=== PATIENT | female | born 1950 | race Caucasian/White ===

== ENCOUNTER 2022-07-28 09:53 | Inpatient (IN) | payer MEDICARE, SELFPAY ==
--- NOTE | ~2022-07-28 | CT_ITS ---
EXAMINATION: CT ABDOMEN AND PELVIS WITHOUT CONTRAST CLINICAL INFORMATION: Diffuse abdominal pain and diarrhea COMPARISON: PVR exam 12/02/2016 TECHNIQUE: Multidetector volumetric imaging was performed from the superior aspect of the liver through the pubic symphysis. Sagittal and coronal reformatted images were obtained on the technologist's workstation. This CT examination was performed using dose optimization techniques as appropriate, variously including the following: *Automated exposure control *Adjustment of mA and/or kV according to patient size (this includes techniques or standardized protocols for targeted exams where dose is matched to indication/reason for exam; i.e. extremities or head) *Use of iterative reconstruction technique DLP: 956 mGy-cm FINDINGS: LUNG BASES: Extensive coronary calcifications seen in the left anterior descending artery and the circumflex artery. Heart size normal. No infiltrates, effusions or lung masses are seen. LIVER, GALLBLADDER, AND BILIARY TREE: The liver is enlarged measuring 19.8 cm in greatest length with normal attenuation. No focal hepatic lesion or biliary ductal dilatation is present. The gallbladder contains large rim calcified calculi with some possible mural calcification. There are no obvious pericholecystic inflammatory changes. PANCREAS: Unremarkable. SPLEEN: Splenomegaly with the spleen measuring 14.4 cm in greatest cephalocaudad dimension. ADRENAL GLANDS: Unremarkable. KIDNEYS AND URETERS: The kidneys are normal in size, shape, and attenuation. No hydronephrosis, hydroureter, or calculi seen. No perinephric stranding. BLADDER: Unremarkable. GASTROINTESTINAL TRACT: The small and large bowel are unremarkable. Large amount of bowel is present in the hernia sac described below. The appendix is unremarkable. ABDOMINAL WALL: There is a large periumbilical hernia seen containing unobstructed colon and small bowel. LYMPH NODES: No retroperitoneal lymphadenopathy. VASCULAR: Severe infrarenal aorta iliac atherosclerotic changes are seen with probable right iliac stenosis. At the time of the prior PVR study the ankle-brachial index on the right was 0.38. Heavy calcific plaque present at the origin of the SMA with stenosis. At one point, calcified plaque appears to fill nearly the entire lumen again (4:247). No significant calcific plaque seen at the origin of the NAKITA. PELVIC VISCERA: Surgically absent OSSEOUS STRUCTURES: Severe degenerative changes seen throughout the spine. CT/CT abdomen pelvis wo IV con IMPRESSION: 1. Hepatosplenomegaly. 2. Cholelithiasis without cholecystitis. 3. Large periumbilical hernia containing unobstructed colon and small bowel. 4. 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 5. Other incidental findings as described above. Fleischner guidelines were followed.
[2022-07-28 10:00] VITALS: BP 122/97; BP 141/79; PULSE 78; RESP 18; TEMP 36.4; O2SAT 97; BMI 45.6
--- NOTE | 2022-07-28 10:02 | ED_ITS ---
HPI - Abdominal Pain General Chief Complaint: General Medical Stated Complaint: Abd pain, diarrhea/nausea per EMS Time Seen by Provider: 07/28/22 10:00 Source: patient Mode of arrival: EMS Limitations: no limitations History of Present Illness HPI narrative: 2 weeks of abdominal pain and diarrhea described as watery MD elicited complaint: abdominal pain Pertinent past history: diverticulitis and other (large ventral hernia) Onset (ago): week(s) Pain Consistency: constant Location: diffuse Quality: aching Associated symptoms: nausea, vomiting and diarrhea Related Data Home Medications Medication Instructions Recorded Confirmed apixaban 5 mg tablet (Eliquis) 5 mg PO BID 09/02/21 09/30/21 acetaminophen 325 mg tablet 325 mg PO DAILY PRN 09/07/21 09/30/21 (Tylenol) atorvastatin 40 mg tablet 40 mg PO BEDTIME 09/07/21 09/30/21 propranolol 20 mg tablet 20 mg PO BID 09/07/21 09/30/21 furosemide 20 mg tablet 20 mg PO DAILY 09/30/21 09/30/21 levetiracetam 750 mg tablet 750 mg PO DAILY 09/30/21 09/30/21 Previous Rx's Medication Instructions Recorded lidocaine 4 % topical patch 2 patch topical DAILY PRN pain #30 09/02/21 (Aspercreme (lidocaine)) ea losartan 25 mg tablet 25 mg PO DAILY #90 tabs 09/16/21 ropinirole 0.25 mg tablet 0.25 mg PO BEDTIME #90 tabs 09/21/21 blood sugar diagnostic (FreeStyle #100 ea 09/30/21 Lite Strips) blood-glucose meter (FreeStyle #1 ea 09/30/21 [place] Lite kit) lancets 28 gauge (FreeStyle #100 ea 09/30/21 Lancets) mupirocin calcium 2 % topical cream 1 appl topical BID #30 grams 09/30/21 nystatin 100,000 unit/gram topical 1 appl topical TID PRN fungal rash 09/30/21 powder (Nystop) #60 grams doxycycline monohydrate 100 mg 100 mg PO BID 7 days #14 caps 11/25/21 capsule ondansetron 4 mg disintegrating 4 mg PO Q8H PRN nausea and 12/23/21 tablet vomiting 15 days #45 tabs methimazole 5 mg tablet 5 mg PO DAILY 90 days #90 tabs 04/20/22 omeprazole 20 mg capsule,delayed 20 mg PO DAILY 90 days #90 caps 05/14/22 release Allergies Allergy/AdvReac Type Severity Reaction Status Date / Time aloe vera [ALOE VERA] Allergy Intermediate RASH Verified 09/30/21 15:55 erythromycin base Allergy Intermediate RASH Verified 09/30/21 15:55 [ERYTHROMYCIN BASE] azithromycin Allergy Unknown Rash Verified 09/30/21 15:55 simvastatin AdvReac Unknown palpitations, Verified 09/30/21 15:55 chest pains Review of Systems Review of Systems Yes all other systems are reviewed and are negative Gastrointestinal: Reports abdominal pain and Reports diarrhea PMFSH Past Medical History Medical History Congestive heart failure (CHF) COPD (chronic obstructive pulmonary disease) Diabetes mellitus Epilepsy Osteoarthritis Surgical History History of hysterectomy Social History Social History Housing: Apartment Alcohol intake: never Patient Tobacco Use Status: Former Tobacco user Tobacco use type: Cigarette Smoked in Last 30 Days: No e-Cigarette/Vaping Use: Never Used Advance Directives: No Current occupational status: disabled Cognitive needs: No Hearing needs: No Vision needs: No Physical Exam ED Vital Signs: Vital Signs - 24 hr 07/28/22 10:00 Temperature 97.5 F Pulse Rate 78 Respiratory Rate 18 Blood Pressure 141/79 H Pulse Oximetry 97 Oxygen Delivery Method Room Air BMI result Body Mass Index 45.6 Const Other: obese, unkept Orientation/consciousness: oriented to person and patient oriented x3 Limitations: no limitations HENMT Head: Yes normal to inspection Ears: external ears normal General nose exam: Normal external nose present Mouth: Normal oral and palatal mucosa present and oropharynx normal Throat: Yes posterior oropharynx normal Eyes General: appearance normal, both eyes and all related structures Neck Neck: Yes normal visual inspection Chest Chest palpation & inspection: normal inspection of the chest Resp Auscultation: clear to auscultation bilaterally Cardio Jugular venous distension: no JVD Rate: regular rate Rhythm: regular rhythm Heart sounds: S1 normal heart sound present and S2 normal heart sound present GI Other: large ventral hernia easily reduced, diffuse tenderness to abdomen Palpation (GI): Tenderness to palpation present (GI) Auscultation: normal bowel sounds General: Yes no CVA tenderness Back/Spine/Pelvis Back: no CVA tenderness Skin General skin exam: no rashes or lesions noted Neuro General: oriented to person and patient oriented x3 Cranial nerves: Yes CN's II-XII intact bilaterally Motor exam (neuro): 5/5 motor strength present throughout Extrem General: Yes normal to inspection Psych Appearance: grossly normal Medical Decision Making Differential Diagnosis bowel obstruction, cdifficile, diverticulitis, colitis Admission/Observation 71 debilitated female with abdominal pain and diarrhea admission is begin considered Consult Healthcare Provider Management of the patient was discussed with: Hospitalist Lab Data 07/28/22 10:58 07/28/22 10:58 Labs: Lab Results 07/28/22 07/28/22 07/28/22 Range/Units 10:58 10:58 10:59 WBC 10.1 (4.8-10.8) X10*3/uL RBC 4.37 (4.20-5.50) X10*6/uL Hgb 11.7 L (12.0-16.0) g/dl Hct 35.8 L (37.0-47.0) % MCV 81.9 (80.0-98.0) fL MCH 26.8 L (27.0-33.0) pg MCHC 32.7 (31.0-35.0) g/dl RDW 14.2 (11.0-16.0) % Plt Count 220 (160-400) X10*3/uL MPV 10.5 (9.4-12.3) fL Immature Gran % (Auto) 0.5 H (0.0-0.4) % Neut % (Auto) 84.2 H (45-73) % Lymph % (Auto) 11.5 L (20-40) % [place] % (Auto) 3.1 (2-11) % Eos % (Auto) 0.4 (0-4) % Baso % (Auto) 0.3 (0-2) % Lymph # (Auto) 1.2 (1.2-4.9) X10*3/uL [place] # (Auto) 0.3 (0.1-1.2) X10*3/uL Eos # (Auto) 0.0 (0.0-0.4) X10*3/uL Baso # (Auto) 0.0 (0.0-0.2) X10*3/uL Abs Immat Gran (auto) 0.05 H (0.00-0.03) X10*3/uL Absolute Neuts (auto) 8.5 H (2.0-8.3) x10*3/uL Absolute Nucleated RBC 0.000 (0.0-0.012) X10*3/uL Nucleated RBC % (auto) 0.0 (0.0-0.2) /100WBC Sodium 141 (135-145) mmol/L Potassium 2.7 L (3.3-5.1) mmol/L Chloride 97 (96-108) mmol/L Carbon Dioxide 30 H (22-29) mmol/L Anion Gap 17 (12-20) BUN 11 (9-16) mg/dL Creatinine 0.62 (0.5-1.4) mg/dL Estim Creat Clear Calc 91.5 Estimated GFR > 60 Random Glucose 106 (60-115) mg/dL Calcium 7.3 L (8.4-10.2) mg/dL Magnesium 0.6 L* (1.6-2.6) mg/dL Total Bilirubin 0.5 (0.0-1.0) mg/dL AST 9 (5-31) U/L ALT < 6 (0-31) U/L Alkaline Phosphatase 144 H (39-117) U/L Total Protein 6.2 L (6.5-8.0) g/dL Albumin 3.5 (3.5-5.0) g/dL Urine Color Urine Appearance Urine pH (5.0-9.0) Ur Specific [place] (1.005-1.025) Urine Protein (Neg-Trace) mg/dL Urine Glucose (UA) (Negative) mg/dL Urine Ketones (Negative) mg/dL Urine Blood (Negative) Urine Nitrite (Negative) Ur Leukocyte Esterase (Negative) Urine RBC (0-2) /HPF Urine WBC (0-5) /HPF Ur Squamous Epith Cells (0-2) /HPF Urine Bacteria (None Seen) Hyaline Casts (0-2) /LPF Stool Leukocytes, Qual NEGATIVE (NEGATIVE) 07/28/22 Range/Units 12:41 WBC (4.8-10.8) X10*3/uL RBC (4.20-5.50) X10*6/uL Hgb (12.0-16.0) g/dl Hct (37.0-47.0) % MCV (80.0-98.0) fL MCH (27.0-33.0) pg MCHC (31.0-35.0) g/dl RDW (11.0-16.0) % Plt Count (160-400) X10*3/uL MPV (9.4-12.3) fL Immature Gran % (Auto) (0.0-0.4) % Neut % (Auto) (45-73) % Lymph % (Auto) (20-40) % [place] % (Auto) (2-11) % Eos % (Auto) (0-4) % Baso % (Auto) (0-2) % Lymph # (Auto) (1.2-4.9) X10*3/uL [place] # (Auto) (0.1-1.2) X10*3/uL Eos # (Auto) (0.0-0.4) X10*3/uL Baso # (Auto) (0.0-0.2) X10*3/uL Abs Immat Gran (auto) (0.00-0.03) X10*3/uL Absolute Neuts (auto) (2.0-8.3) x10*3/uL Absolute Nucleated RBC (0.0-0.012) X10*3/uL Nucleated RBC % (auto) (0.0-0.2) /100WBC Sodium (135-145) mmol/L Potassium (3.3-5.1) mmol/L Chloride (96-108) mmol/L Carbon Dioxide (22-29) mmol/L Anion Gap (12-20) BUN (9-16) mg/dL Creatinine (0.5-1.4) mg/dL Estim Creat Clear Calc Estimated GFR Random Glucose (60-115) mg/dL Calcium (8.4-10.2) mg/dL Magnesium (1.6-2.6) mg/dL Total Bilirubin (0.0-1.0) mg/dL AST (5-31) U/L ALT (0-31) U/L Alkaline Phosphatase (39-117) U/L Total Protein (6.5-8.0) g/dL Albumin (3.5-5.0) g/dL Urine Color Yellow Urine Appearance Cloudy Urine pH 6.0 (5.0-9.0) Ur Specific [place] 1.010 (1.005-1.025) Urine Protein Negative (Neg-Trace) mg/dL Urine Glucose (UA) Negative (Negative) mg/dL Urine Ketones Negative (Negative) mg/dL Urine Blood Negative (Negative) Urine Nitrite Negative (Negative) Ur Leukocyte Esterase Moderate (2+) H (Negative) Urine RBC 3-5 H (0-2) /HPF Urine WBC 11-20 H (0-5) /HPF Ur Squamous Epith Cells 11-20 (0-2) /HPF Urine Bacteria 1+ (None Seen) Hyaline Casts 0-2 (0-2) /LPF Stool Leukocytes, Qual (NEGATIVE) Independent Interpretation I performed an independent interpretation of an: EKG (sinus 67, no st or twave changes no evidence of hypokalemia) and CT Scan (No evidence of diverticulitis, calcified Gall bladder) Medications Administered Generic Name Dose Route Start Last Admin Trade Name Freq PRN Reason Stop Dose Admin Magnesium Sulfate 2 gm in 50 mls @ 25 mls/hr 07/28/22 12:16 07/28/22 12:23 Magnesium Sulfate/H2o IV 07/28/22 14:15 25 mls/hr ONCE ONE Administration Potassium Chloride 20 meq in 100 mls @ 100 mls/hr 07/28/22 12:16 07/28/22 12:46 Potassium Chloride/H20 IV 07/28/22 13:15 100 mls/hr ONCE ONE Administration Discontinued Medications Generic Name Dose Route Start Last Admin Trade Name Freq PRN Reason Stop Dose Admin Acetaminophen 975 mg 07/28/22 11:49 07/28/22 12:12 Acetaminophen 325 Mg Tablet PO 07/28/22 11:50 Not Given ONCE ONE Potassium Chloride 20 meq 07/28/22 11:44 07/28/22 12:18 Potassium Chloride Er 20 Meq Tab.Er.Prt PO 07/28/22 11:45 Not Given ONCE ONE Discharge Plan Discharge Clinical Impression: Diarrhea, Hypocalcemia, Acute hypokalemia, Hypomagnesemia Patient Disposition: Admitted As Inpatient
--- NOTE | 2022-07-28 10:45 | PC.NURSE ---
patient a/ox4 . jennifer . heart rate regular at 71 beats per minute . breathing even and unlabored . skin pink warm and dry . patient has large abdominal hernia located in lower part of abdomen . rebound tenderness noted above the hernia . reports pain level of 10 out of 10 pain level above the hernia . stool sample obtained and sent to lab . patient is aware of plan of care .
[2022-07-28 11:03] LABS: MANUAL DIFF FLAG NO
[2022-07-28 11:05] LABS: Basophils Percent Auto 0.3 % (0-2); Eosinophils Percent Auto 0.4 % (0-4); Hematocrit 35.8 % (37.0-47.0); Hemoglobin 11.7 g/dl (12.0-16.0); Imm Gran Abs Auto 0.05 X10*3/uL (0.00-0.03); Imm Gran Pct Auto 0.5 % (0.0-0.4); Lymphocytes Absolute Auto 1.2 X10*3/uL (1.2-4.9); Lymphocytes Percent Auto 11.5 % (20-40); Mean Corpuscular HGB Conc 32.7 g/dl (31.0-35.0); Mean Corpuscular Hemoglobin 26.8 pg (27.0-33.0); Mean Corpuscular Volume 81.9 fL (80.0-98.0); Mean Platelet Volume 10.5 fL (9.4-12.3); Monocytes Absolute Auto 0.3 X10*3/uL (0.1-1.2); Monocytes Percent Auto 3.1 % (2-11); Neutrophils Absolute Auto 8.5 x10*3/uL (2.0-8.3); Neutrophils Percent Auto 84.2 % (45-73); Platelet Count 220 X10*3/uL (160-400); Red Blood Count 4.37 X10*6/uL (4.20-5.50); Red Cell Distribution Width 14.2 % (11.0-16.0); White Blood Count 10.1 X10*3/uL (4.8-10.8)
[2022-07-28 11:21] LABS: Alanine Aminotransferase < 6 U/L (0-31); Albumin Level 3.5 g/dL (3.5-5.0); Alkaline Phosphatase 144 U/L (39-117); Anion Gap 17 (12-20); Aspartate Amino Transferase 9 U/L (5-31); Bilirubin Total 0.5 mg/dL (0.0-1.0); Blood Urea Nitrogen 11 mg/dL (9-16); Calcium 7.3 mg/dL (8.4-10.2); Carbon Dioxide 30 mmol/L (22-29); Chloride 97 mmol/L (96-108); Creatinine Clr Calc Pharmacy 91.5; Estimated Glomerular Filt Rate > 60; Glucose Random 106 mg/dL (60-115); Potassium 2.7 mmol/L (3.3-5.1); Sodium 141 mmol/L (135-145); Total Protein 6.2 g/dL (6.5-8.0)
[2022-07-28 12:07] LABS: Leukocytes Stool Qualitative NEGATIVE (NEGATIVE)
[2022-07-28 12:10] LABS: Magnesium 0.6 mg/dL (1.6-2.6)
--- NOTE | 2022-07-28 12:19 | ECG_ITS ---
Test Reason : ABNORM LABS Blood Pressure : / mmHG Vent. Rate : 067 BPM Atrial Rate : 067 BPM P-R Int : 180 ms QRS Dur : 076 ms QT Int : 420 ms P-R-T Axes : 091 064 049 degrees QTc Int : 443 ms Normal sinus rhythm Low voltage QRS Borderline ECG When compared with ECG of 15-MAY-2012 07:38, Borderline criteria for Inferior infarct are no longer Present Referred By: Hill Jean-Baptiste Electronically Signed By:REBEL BARRIOS
[2022-07-28 12:52] LABS: Appearance Urine Cloudy; Color Urine Yellow; Glucose Urine UA Negative (Negative); Leukocyte Esterase Urine Moderate (2+) (Negative); Nitrite Urine Negative (Negative); UMIC TRIGGER UACC YES; Urine Blood Negative (Negative); Urine Ketones Negative (Negative); Urine Protein Negative (Neg-Trace)
--- NOTE | 2022-07-28 12:52 | PC.NURSE ---
IV placed in right A.C . patient has two IV . Potassium and magnesium IV started as ordered by provider r/t low levels . patient is aware of admission and plan of care .
[2022-07-28 13:00] LABS: Bacteria Urine 1+ (None Seen); Hyaline Casts Urine 0-2 /LPF (0-2); UACC Culture Trigger YES
[2022-07-28 13:03] LABS: COVID-19 Test Negative (Negative); IDNOW Serial# 16C4AD1C
[2022-07-28] MEDS: Magnesium Sulfate/H2O 2 GM/50 ML PIGGYBACK IV (13:08)
--- NOTE | 2022-07-28 13:20 | P.HPHOSP_ITS ---
History of Present Illness Date of Service: 07/28/22 Attending physician on admission: Syed Knight Chief Complaint: Diarrhea 71-year-old female patient with past medical history significant for atrial fibrillation on Eliquis, history of CHF, COPD, diabetes mellitus not on medication, history of epilepsy, osteoarthritis presented to [facility] with 2 weeks of nonbloody brown watery diarrhea with foul odor without associated fever chills or rigors, patient complained of associated nausea and lower abdominal pain around chronic periumbilical hernia she has been tolerating diet, denies recent use of antibiotics, no change in medications, no outside food no other family member with similar symptoms patient has been homebound since 2018, in the emergency room patient was noted to have a low potassium of 2.7 magnesium of 0.6 and low calcium of 7.3 with a normal albumin of 3.5, p atient has normal LFTs normal renal function, normal WBC count, CT abdomen and pelvis showed hepato splenomegaly, cholelithiasis And large periumbilical hernia containing unobstructed colon and small bowel and severe atherosclerotic changes with SMA stenosis and probable right iliac stenosis, patient treated in the emergency room with IV magnesium 2 g and IV potassium 20 mEq and now being admitted to [facility] with profuse watery diarrhea associated with multiple electrolyte abnormalities. Review of Systems Review of Systems: General no headache, no dizziness, no fever chills. CVS no chest pain, no palpitation. Respiratory no cough, no sob. Gastrointestinal no vomiting, abdominal pain now resolved Skin no allergies Yes all other systems are reviewed and are negative [facility] Medical History Congestive heart failure (CHF) COPD (chronic obstructive pulmonary disease) Diabetes mellitus Epilepsy Osteoarthritis Pertinent family history: Father is patient not aware of his health, mother is had oral cancer, strong family history of diabetes Surgical History History of hysterectomy Social History Household Members: Spouse Housing: House Do you presently have visiting nurse or other home services: Yes (home health aide ) Alcohol intake: never Patient Tobacco Use Status: Never used Tobacco Tobacco use type: Cigarette Smoked in Last 30 Days: No e-Cigarette/Vaping Use: Never Used Use of substances other than those prescribed or required for medical reasons: No Currently Displaying Signs/Symptoms of Drug Intoxication Withdrawal: No Have you been hit, kicked, punched, or otherwise hurt by someone within the past year? If so, by whom?: No Do you feel safe in your current relationship?: No Is there a partner from a previous relationship who is making you feel unsafe now?: No Are you made to feel afraid or neglected: No Advance Directives: No Advance Directives Information Provided: No Advance Directives on File: No Do you have thoughts of harming others: None Do you have a plan to hurt others: No Plan Recently lost weight without trying: No Eating poorly because of decreased appetite: No Nutrition Risks: No Nutritional Risk Patient : No : No Poor oral hygiene: No Current occupational status: disabled Cognitive needs: No Hearing needs: No Vision needs: No Meds Allergies Allergy/AdvReac Type Severity Reaction Status Date / Time aloe vera [ALOE VERA] Allergy Intermediate RASH Verified 09/30/21 15:55 erythromycin base Allergy Intermediate RASH Verified 09/30/21 15:55 [ERYTHROMYCIN BASE] azithromycin Allergy Unknown Rash Verified 09/30/21 15:55 simvastatin AdvReac Unknown palpitations, Verified 09/30/21 15:55 chest pains Active Medications: Current Medications Acetaminophen (Acetaminophen 325 Mg Tablet) 650 mg PO Q6H PRN PRN Reason: Pain, Mild (Pain Scale 1-3) Magnesium Sulfate (Magnesium Sulfate/H2o) 2 gm in 50 mls @ 25 mls/hr IV ONCE ONE Stop: 07/28/22 14:15 Last Admin: 07/28/22 13:08 Dose: 25 mls/hr Potassium Chloride (Potassium Chloride/H20) 10 meq in 100 mls @ 100 mls/hr IV ONCE ONE Stop: 07/28/22 14:10 Melatonin (Melatonin 3 Mg Tablet) 3 mg PO BEDTIME PRN PRN Reason: Insomnia Ondansetron HCl (Ondansetron Hcl 4 Mg/2 Ml Vial) 4 mg IVPUSH Q8H PRN PRN Reason: Nausea and Vomiting Pharmacy Consult (Consult Rx Perform Med Rec) 1 each MISCELLANE ONCE PRN PRN Reason: Consult order Sodium Chloride (0.9 % Sodium Chloride Flush 3 Ml Syringe) 3 ml IVFLUSH QSHI Home Medications Medication Instructions Recorded Confirmed Last Taken Type apixaban 5 mg tablet (Eliquis) 5 mg PO BID 09/02/21 07/28/22 Unknown History atorvastatin 40 mg tablet 40 mg PO BEDTIME 09/07/21 07/28/22 Unknown History levetiracetam 750 mg tablet 750 mg PO BID 09/30/21 07/28/22 Unknown History amlodipine 5 mg tablet 1 tab PO DAILY 07/28/22 07/28/22 Unknown History furosemide 40 mg tablet 1 tab PO DAILY 07/28/22 07/28/22 Unknown History losartan 100 mg tablet 1 tab PO DAILY 07/28/22 07/28/22 Unknown History propranolol 10 mg tablet 1 tab PO BID 07/28/22 07/28/22 Unknown History Physical Exam Vital Signs and Narrative: Vital Signs: Last Vital Signs Temp 97.5 F 07/28/22 10:00 Pulse 78 07/28/22 10:00 Resp 18 07/28/22 10:00 BP 141/79 H 07/28/22 10:00 Pulse Ox 97 07/28/22 10:00 O2 Del Method 07/28/22 10:00 BMI result Body Mass Index 45.6 Const: Other: General awake alert, resting comfortably in no acute distress. HEENT: PERRLA Neck supple no JVD. CVS regular rate rhythm, Respiratory lungs diminished breath sound, no respiratory distress, no wheeze, no rhonchi. Gastrointestinal abdomen soft, obese large periumbilical hernia, dry scab, nontender, bowel sounds audible, no guarding , no rigidity. Extremities no edema. Neuro nonfocal Skin no rash Psych appropriate affect Results Labs 07/28/22 10:58 07/28/22 10:58 Labs: Laboratory Results - last 24 hr 07/28/22 07/28/22 07/28/22 10:58 10:58 10:59 MCV 81.9 MCH 26.8 L MCHC 32.7 RDW 14.2 Plt Count 220 MPV 10.5 Immature Gran % (Auto) 0.5 H Neut % (Auto) 84.2 H Lymph % (Auto) 11.5 L [place] % (Auto) 3.1 Eos % (Auto) 0.4 Baso % (Auto) 0.3 Lymph # (Auto) 1.2 [place] # (Auto) 0.3 Eos # (Auto) 0.0 Baso # (Auto) 0.0 Abs Immat Gran (auto) 0.05 H Absolute Neuts (auto) 8.5 H Absolute Nucleated RBC 0.000 Nucleated RBC % (auto) 0.0 Anion Gap 17 Estim Creat Clear Calc 91.5 Estimated GFR > 60 Random Glucose 106 Calcium 7.3 L Magnesium 0.6 L* Total Bilirubin 0.5 AST 9 ALT < 6 Alkaline Phosphatase 144 H Total Protein 6.2 L Albumin 3.5 Urine Color Urine Appearance Urine pH Ur Specific [place] Urine Protein Urine Glucose (UA) Urine Ketones Urine Blood Urine Nitrite Ur Leukocyte Esterase Urine RBC Urine WBC Ur Squamous Epith Cells Urine Bacteria Hyaline Casts Stool Leukocytes, Qual NEGATIVE COVID-19 (GÓMEZ) COVID-19 [employer] 07/28/22 07/28/22 12:41 12:41 MCV MCH MCHC RDW Plt Count MPV Immature Gran % (Auto) Neut % (Auto) Lymph % (Auto) [place] % (Auto) Eos % (Auto) Baso % (Auto) Lymph # (Auto) [place] # (Auto) Eos # (Auto) Baso # (Auto) Abs Immat Gran (auto) Absolute Neuts (auto) Absolute Nucleated RBC Nucleated RBC % (auto) Anion Gap Estim Creat Clear Calc Estimated GFR Random Glucose Calcium Magnesium Total Bilirubin AST ALT Alkaline Phosphatase Total Protein Albumin Urine Color Yellow Urine Appearance Cloudy Urine pH 6.0 Ur Specific [place] 1.010 Urine Protein Negative Urine Glucose (UA) Negative Urine Ketones Negative Urine Blood Negative Urine Nitrite Negative Ur Leukocyte Esterase Moderate (2+) H Urine RBC 3-5 H Urine WBC 11-20 H Ur Squamous Epith Cells 11-20 Urine Bacteria 1+ Hyaline Casts 0-2 Stool Leukocytes, Qual COVID-19 (GÓMEZ) Negative COVID-19 Portfolium Com See Note Imaging Radiologist's Impressions: Impressions Abdomen/Pelvis CT 07/28/22 11:09 IMPRESSION: 1. Hepatosplenomegaly. 2. Cholelithiasis without cholecystitis. 3. Large periumbilical hernia containing unobstructed colon and small bowel. 4. 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 5. Other incidental findings as described above. Fleischner guidelines were followed. Assessment and Plan (1) Diarrhea: Status: Acute (2) Hypocalcemia: Status: Acute (3) Acute hypokalemia: Status: Acute (4) Hypomagnesemia: Status: Acute (5) Epilepsy: Qualifiers: Epilepsy type: unspecified Intractability: not intractable Status epilepticus: without status epilepticus Qualified Code(s): G40.909 - Epilepsy, unspecified, not intractable, without status epilepticus Status: Acute Plan 71-year-old female patient with multiple medical issues including history of atrial fibrillation on Eliquis, history of hyperlipidemia, epilepsy, hypertension presented to [facility] due to diarrhea of 2 weeks duration without associated fever, with mild nausea and lower abdominal pain patient noted to have multiple electrolyte abnormalities will be admitted for further treatment and evaluation of persistent diarrhea. Diarrhea Normal WBC, no fever, stable CT abdomen and pelvis showed no acute diverticulit is, showed periumblical hernia with non obstructive bowels Stool for C diff and stool panel sent Differential diagnosis viral gastroenteritis question due to hyperthyroidism will check TSH No recent travel, no antibiotics continue supportive care follows stool result Multiple electrolyte abnormality hypokalemia, hypo magnesemia and low calcium Likely due to ongoing diarrhea Will hold Lasix Aggressively replete electrolytes follow labs Paroxysmal Atrial fibrillation, now in normal sinus rhythm, will continue propranolol and Eliquis med reconciliation not done Unspecified Epilepsy well controlled, will resume home medication,sz precautions Morbid obesity due to high calorie recommend low-calorie diet Hyperlipidemia cont. Statin Hyperthyroidism continue methimazole and propranolol check TSH Code status full code DVT prophylaxis on Eliquis In my clinical judgment patient will need 2 night inpatient stay since requiring intravenous electrolyte replacement and need close monitoring of electrolytes. Time Spent With Patient Time: Total time managing care of this patient today ____ minutes. Quality Stroke Does the patient have a stroke diagnosis?: No VTE Prior VTE?: No VTE Risk Level:: Medical - moderate - high VTE Device Contraindication: Treatment Not Indicated VTE Drug Contraindication: N/A - Med Ordered
[2022-07-28] MEDS: Potassium Chloride/H20 10 MEQ/100 ML PIGGYBACK 100 MEQ IV (13:35)
[2022-07-28] MEDS: 0.9 % Sodium Chloride Flush 3 ML SYRINGE IVFLUSH ×2 (13:37→19:42)
[2022-07-28 13:39] LABS: CDiff Gene PCR NEGATIVE (Negative)
--- NOTE | 2022-07-28 14:20 | PHA.MEDREC ---
Pharmacy Consult ? Medication Reconciliation Pharmacy has completed the medication reconciliation. Patient confirmed all medications. Patients did not take any medications today or yesterday. Ansley Spencer, PharmD
[2022-07-28 14:21] LABS: Adenovirus F 40/41 Not Detected (Not Detect.); Astrovirus Not Detected (Not Detect.); Campylobacter Not Detected (Not Detect.); Cryptosporidium Not Detected (Not Detect.); Cyclospora cayetanensis Not Detected (Not Detect.); E. coli EAEC Not Detected (Not Detect.); E. coli EPEC Not Detected (Not Detect.); E. coli ETEC Not Detected (Not Detect.); E. coli STEC Not Detected (Not Detect.); Entamoeba histolytica Not Detected (Not Detect.); Giardia lamblia Not Detected (Not Detect.); Norovirus GI/GII Not Detected (Not Detect.); Plesiomonas shigelloides Not Detected (Not Detect.); Rotavirus A Not Detected (Not Detect.); Salmonella Not Detected (Not Detect.); Sapovirus Not Detected (Not Detect.); Shigella sp./EIEC Not Detected (Not Detect.); Vibrio Not Detected (Not Detect.); Vibrio Cholerae Not Detected (Not Detect.); Yersinia enterocolitica Not Detected (Not Detect.)
--- NOTE | 2022-07-28 14:30 | PC.NURSE ---
Report given to Elda Perry patient aware of plan of care .
[2022-07-28 14:31] VITALS: BP 146/52; PULSE 63; RESP 18; TEMP 36.1; O2SAT 97
[2022-07-28 15:32] VITALS: BP 154/68; PULSE 71; RESP 18; TEMP 36.3; O2SAT 93
[2022-07-28 16:49] LABS: Glucose, Whole Blood 95 mg/dL (60-115)
[2022-07-28 19:38] VITALS: BP 143/63; PULSE 69; RESP 18; TEMP 36.1; O2SAT 97
[2022-07-28] MEDS: levETIRAcetam 500 MG TABLET 750 MG PO (19:39)
[2022-07-28] MEDS: Apixaban 5 MG TABLET PO (19:41)
[2022-07-28] MEDS: Atorvastatin Calcium 40 MG TABLET PO (19:42)
[2022-07-28] MEDS: rOPINIRole HCL 0.25 MG TABLET PO (19:42)
[2022-07-28] MEDS: Propranolol HCL 10 MG TABLET PO (19:42)
[2022-07-28 20:30] LABS: Glucose, Whole Blood 112 mg/dL (60-115)
[2022-07-29 07:04] LABS: Thyroid Stimulating Hormone 0.71 uIU/mL (0.32-4.0)
[2022-07-29 07:31] LABS: Anion Gap 14 (12-20); Blood Urea Nitrogen 8 mg/dL (9-16); Calcium 7.5 mg/dL (8.4-10.2); Carbon Dioxide 32 mmol/L (22-29); Chloride 99 mmol/L (96-108); Estimated Glomerular Filt Rate > 60; Glucose Random 92 mg/dL (60-115); Magnesium 1.1 mg/dL (1.6-2.6); Potassium 2.7 mmol/L (3.3-5.1); Sodium 142 mmol/L (135-145)
[2022-07-29 08:00] VITALS: BP 140/65; PULSE 55; RESP 20; TEMP 36.2; O2SAT 94
[2022-07-29] MEDS: Omeprazole 20 MG CAPSULE.DR PO (08:26)
[2022-07-29] MEDS: Apixaban 5 MG TABLET PO ×2 (08:26→19:52)
[2022-07-29] MEDS: levETIRAcetam 500 MG TABLET 750 MG PO ×2 (08:26→19:52)
[2022-07-29] MEDS: methIMAzole 5 MG TABLET PO (08:26)
[2022-07-29] MEDS: Magnesium Sulfate/H2O 2 GM/50 ML PIGGYBACK IV (08:27)
[2022-07-29] MEDS: 0.9 % Sodium Chloride Flush 3 ML SYRINGE IVFLUSH ×3 (08:27→19:54)
[2022-07-29] MEDS: amLODIPine Besylate 5 MG TABLET PO (08:27)
[2022-07-29] MEDS: Potassium Chloride/H20 10 MEQ/100 ML PIGGYBACK 100 MEQ IV ×2 (08:27→09:39)
[2022-07-29] MEDS: Propranolol HCL 10 MG TABLET PO (08:27)
--- NOTE | 2022-07-29 08:49 | P.CDIC_ITS ---
CDI Concurrent Query Documentation Clarification: PHYSICIAN'S DOCUMENTATION REQUEST Date of Query: 07/29/22 0849 Patient Name: Chelo Hills Admit Date: 07/28/22 Dear Doctor, A review of the medical record indicates additional documentation may be needed. Please review below and update the documentation accordingly. Clinical Indicators: A diagnosis of seizure(s) was documented on 07/28/22. Risk Factors/Clinical Indicators/Treatments per H&P: Epilepsy will resume home medication,sz precautions If possible, please further clarify in the Progress Notes, the type/etiology, acuity and control status of seizure(s): Specify type/etiology: * Idiopathic * Febrile (specify simple or complex) * Due to stroke * Post-traumatic * Due to external cause (specify if drug, alcohol, stress, etc.) * Absence * Generalized epilepsy (grand mal, myoclonic, atonic, clonic, tonic-clonic, etc.) * Focal or partial (specify simple or complex) * Petit mal * Recurrent - further specify type/etiology * Other * Unable to determine Specify control status: * Well controlled * Intractable * Pharmacoresistant * Poorly controlled * Refractory * Treatment resistant * Other * Unable to determine Use of terms such as suspected, likely, concern for, or probable (associated with a specific diagnosis that is being evaluated, monitored, or treated as if it exists) are acceptable and can be coded in the inpatient setting, when documented at the time of discharge. Thank you, Lisette Poe RN Extension: [phone] Please use your independent medical judgment in providing your response. THIS QUERY IS PART OF THE PERMANENT MEDICAL RECORD Provider Response: Other Other Diagnosis: see note
--- NOTE | 2022-07-29 08:49 | MHC.CDI.CONC ---
CDI Concurrent Query Documentation Clarification: PHYSICIAN'S DOCUMENTATION REQUEST Date of Query: 07/29/22 0849 Patient Name: Chelo Hills Admit Date: 07/28/22 Dear Doctor, A review of the medical record indicates additional documentation may be needed. Please review below and update the documentation accordingly. Clinical Indicators: A diagnosis of seizure(s) was documented on 07/28/22. Risk Factors/Clinical Indicators/Treatments per H&P: Epilepsy will resume home medication,sz precautions If possible, please further clarify in the Progress Notes, the type/etiology, acuity and control status of seizure(s): Specify type/etiology: Idiopathic Febrile (specify simple or complex) Due to stroke Post-traumatic Due to external cause (specify if drug, alcohol, stress, etc.) Absence Generalized epilepsy (grand mal, myoclonic, atonic, clonic, tonic-clonic, etc.) Focal or partial (specify simple or complex) Petit mal Recurrent - further specify type/etiology Other Unable to determine Specify control status: Well controlled Intractable Pharmacoresistant Poorly controlled Refractory Treatment resistant Other Unable to determine Use of terms such as suspected, likely, concern for, or probable (associated with a specific diagnosis that is being evaluated, monitored, or treated as if it exists) are acceptable and can be coded in the inpatient setting, when documented at the time of discharge. Thank you, Lisette Poe RN Extension: [phone] Please use your independent medical judgment in providing your response. THIS QUERY IS PART OF THE PERMANENT MEDICAL RECORD Provider Response: Other Other Diagnosis: see note
--- NOTE | 2022-07-29 08:51 | P.CDIC_ITS ---
CDI Concurrent Query Documentation Clarification: PHYSICIAN'S DOCUMENTATION REQUEST Date of Query: 07/29/22 0852 Patient Name: Chelo Hills Admit Date: 07/28/22 Dear Doctor, A review of the medical record indicates additional documentation may be needed. Please review below and update the documentation accordingly. Clinical Indicators: Height: [] 5 FT Weight: [] 105.994 kg BMI: [] 45.6 Other Clinical Notes Supporting Significance of the BMI: Risk Factors/Clinical Indicators/Treatments If possible, please provide an associated diagnosis related to the abnormal BMI, such as: For a BMI >= 40: * Overweight * Obesity * Due to excess calories * Drug induced * Due to other cause * Severe or Morbid Obesity * With alveolar hypoventilation * Without alveolar hypoventilation Or: * BMI is not significant * Other (please specify) * Unable to determine Use of terms such as suspected, likely, concern for, or probable (associated with a specific diagnosis that is being evaluated, monitored, or treated as if it exists) are acceptable and can be coded in the inpatient setting, when documented at the time of discharge. Thank you, Lisette Poe RN Extension: [phone] Please use your independent medical judgment in providing your response. THIS QUERY IS PART OF THE PERMANENT MEDICAL RECORD Provider Response: Other Other Diagnosis: see note
--- NOTE | 2022-07-29 09:45 | MHC.CM.PN ---
PATIENT LIVES WITH HER HCP/SPOUSE, FABRICIO SHE DOES NOT USE A WALKER OR CANE AND PREFERS TO WALL-WALK SHE DOES REQUIRE BLS TRANSPORT, SHE IS UNABLE TO MANAGE THE STAIRS TO HER HOME. WHEN PATIENT HAS VNA NEEDS, SHE USES [facility] TO FOLLOW. [facility] PROVIDES SERVICES IN THE HOME : [facility] PATIENT RECEIVES MEALS ON WHEELS WELL. PCP IS DR BÁRBARA TRAMMELL IMM 07/29 IN CHART
[2022-07-29] MEDS: Potassium Chloride ER 20 MEQ TAB.ER.PRT 40 MEQ PO (10:48)
--- NOTE | 2022-07-29 14:03 | P.PNIM_ITS ---
Subjective Subjective Date of Service: 07/29/22 Interval History: Tolerating diet, no nausea, no vomiting, no fevers, no chills has had no diarrhea in last 24 hours, denies headache, no dizziness no other acute issues overnight patient refused to take potassium supplements by mouth therefore potassium remains low at 2.7 today magnesium improved to 1.1. Review of Systems Review of Systems: Yes all other systems are reviewed and are negative Physical Exam Vital Signs: Vital Signs: Last Vital Signs Temp 97.2 F 07/29/22 08:00 Pulse 55 07/29/22 08:00 Resp 20 07/29/22 08:00 BP 140/65 H 07/29/22 08:00 Pulse Ox 94 07/29/22 08:00 O2 Del Method 07/29/22 08:00 BMI result Body Mass Index 45.6 Const: Other: General awake alert, resting comfortably in no acute distress.? HEENT: PERRLA Neck supple no JVD. CVS? regular rate rhythm, Respiratory lungs diminished breath sound, no respiratory distress, no wheeze, no rhonchi. Gastrointestinal abdomen soft, obese large periumbilical hernia, dry scab, non tender, bowel sounds audible, no guarding , no rigidity. Extremities no edema. Neuro non focal Skin no rash Psych appropriate affect Objective Data Active Medications Acetaminophen (Acetaminophen 325 Mg Tablet) 650 mg PO Q6H PRN PRN Reason: Pain, Mild (Pain Scale 1-3) Amlodipine Besylate (Amlodipine Besylate 5 Mg Tablet) 5 mg PO DAILY [facility]; Protocol Last Admin: 07/29/22 08:27 Dose: 5 mg Documented By: CECILE Apixaban (Apixaban 5 Mg Tablet) 5 mg PO BID [facility] Last Admin: 07/29/22 08:26 Dose: 5 mg Documented By: CECILE Atorvastatin Calcium (Atorvastatin Calcium 40 Mg Tablet) 40 mg PO BEDTIME [facility] Last Admin: 07/28/22 19:42 Dose: 40 mg Documented By: CARLEE Calcium Carbonate/Cholecalciferol (Calcium + Vitamin D 250 Mg Tablet) 500 mg PO DAILY [facility] Levetiracetam (Levetiracetam 500 Mg Tablet) 750 mg PO BID [facility] Last Admin: 07/29/22 08:26 Dose: 750 mg Documented By: CECILE Melatonin (Melatonin 3 Mg Tablet) 3 mg PO BEDTIME PRN PRN Reason: Insomnia Methimazole (Methimazole 5 Mg Tablet) 5 mg PO DAILY [facility] Last Admin: 07/29/22 08:26 Dose: 5 mg Documented By: CECILE Omeprazole (Omeprazole 20 Mg Capsule.Dr) 20 mg PO DAILY [facility] Last Admin: 07/29/22 08:26 Dose: 20 mg Documented By: CECILE Ondansetron HCl (Ondansetron Hcl 4 Mg/2 Ml Vial) 4 mg IVPUSH Q8H PRN PRN Reason: Nausea and Vomiting Pharmacy Consult (Consult Rx Perform Med Rec) 1 each MISCELLANE ONCE PRN PRN Reason: Consult order Propranolol HCl (Propranolol Hcl 10 Mg Tablet) 10 mg PO BID [facility]; Protocol Last Admin: 07/29/22 08:27 Dose: 10 mg Documented By: CECILE Ropinirole HCl (Ropinirole Hcl 0.25 Mg Tablet) 0.25 mg PO BEDTIME [facility] Last Admin: 07/28/22 19:42 Dose: 0.25 mg Documented By: CARLEE Sodium Chloride (0.9 % Sodium Chloride Flush 3 Ml Syringe) 3 ml IVFLUSH QSHIFT [facility] Last Admin: 07/29/22 08:27 Dose: 3 ml Documented By: CECILE Labs 07/28/22 10:58 07/29/22 05:54 Labs: Laboratory Results - last 24 hr 07/28/22 07/28/22 07/28/22 10:59 16:32 20:19 Anion Gap Estim Creat Clear Calc Estimated GFR POC Glucose 95 112 Random Glucose Calcium Phosphorus Magnesium TSH Stl C. cayetanensis PCR Not Detected Stool Rotavirus A PCR Not Detected Stl Adenov F 40/41 PCR Not Detected Stool Astrovirus (PCR) Not Detected Stool Campylobacter PCR Not Detected Stool Cryptosporidium PCR Not Detected Stl Sh Tox Pr E STEC PCR Not Detected Stool E coli O157 PCR Not applicable Stl Enterotoxigenic E PCR Not Detected Stool EPEC (PCR) Not Detected Stool EAEC (PCR) Not Detected Stl E. histolytica PCR Not Detected Stool Giardia Lamblia PCR Not Detected Stl P. shigelloides PCR Not Detected Stool Salmonella PCR Not Detected Stool Sapovirus (PCR) Not Detected Stl Shigella/EIEC PCR Not Detected St Y.enterocolitica PCR Not Detected Stool Vibrio (PCR) Not Detected Stl Vibrio cholerae PCR Not Detected Stl Norovirus GI/GII PCR Not Detected 07/29/22 05:54 Anion Gap 14 Estim Creat Clear Calc 93.0 Estimated GFR > 60 POC Glucose Random Glucose 92 Calcium 7.5 L Phosphorus 4.0 Magnesium 1.1 L* TSH 0.71 Stl C. cayetanensis PCR Stool Rotavirus A PCR Stl Adenov F 40/41 PCR Stool Astrovirus (PCR) Stool Campylobacter PCR Stool Cryptosporidium PCR Stl Sh Tox Pr E STEC PCR Stool E coli O157 PCR Stl Enterotoxigenic E PCR Stool EPEC (PCR) Stool EAEC (PCR) Stl E. histolytica PCR Stool Giardia Lamblia PCR Stl P. shigelloides PCR Stool Salmonella PCR Stool Sapovirus (PCR) Stl Shigella/EIEC PCR St Y.enterocolitica PCR Stool Vibrio (PCR) Stl Vibrio cholerae PCR Stl Norovirus GI/GII PCR Microbiology Microbiology Results: Microbiology 07/28/22 00:00 Urine Culture - Final Urine clean catch - Urine cuba top Assessment and Plan (1) Diarrhea: Status: Acute (2) Hypocalcemia: Status: Acute (3) Acute hypokalemia: Status: Acute (4) Hypomagnesemia: Status: Acute Plan 71-year-old female patient with multiple medical issues including history of atrial fibrillation on Eliquis, history of hyperlipidemia, epilepsy, hypertension presented to [facility] due to diarrhea of 2 weeks duration without associated fever, with mild nausea and lower abdominal pain patient noted to have multiple electrolyte abnormalities will be admitted for further treatment and evaluation of persistent diarrhea. Diarrhea No further episodes of diarrhea, no abdominal pain, tolerating diet Normal WBC, no fever, stable CT abdomen and pelvis showed no acute diverticulitis, showed periumblical hernia with non obstructive bowels Stool for C diff and stool panel negative, TSH 0.71, likely viral gastroenteritis No recent travel, no antibiotics continue supportive care Multiple electrolyte abnormality hypokalemia, hypo magnesemia and low calcium likely due to GI loss Persistent hypokalemia shins refused to take by mouth potassium supplement, willing to take by mouth potassium tablets today, Will replete IV magnesium, IV and by mouth potassium , add calcium plus vitamin- D hold Lasix follow labs Paroxysmal Atrial fibrillation, now in normal sinus rhythm, continue propranolol and Eliquis Unspecified Epilepsy well controlled, continue home medication,sz precautions Morbid obesity due to high calorie recommend low-calorie diet Hyperlipidemia cont.? Statin Hyperthyroidism continue methimazole and propranolol check TSH Code status full code DVT prophylaxis on Eliquis patient will need continued inpatient stay since requiring intravenous electrolyte replacement and need close monitoring of electrolytes. Time Spent With Patient Time: Total time managing care of this patient today ____ minutes. Quality Stroke Does the patient have a stroke diagnosis?: No VTE Prior VTE?: No VTE Risk Level:: Medical - moderate - high VTE Device Contraindication: Treatment Not Indicated VTE Drug Contraindication: N/A - Med Ordered
[2022-07-29 15:35] VITALS: BP 135/63; PULSE 60; RESP 16; TEMP 36.2; O2SAT 95
[2022-07-29] MEDS: Calcium + Vitamin D 250 MG TABLET 500 MG PO (15:48)
[2022-07-29] MEDS: Magnesium Oxide 400 MG TABLET PO (15:48)
[2022-07-29] MEDS: Potassium Chloride ER 20 MEQ TAB.ER.PRT PO (15:48)
[2022-07-29 16:35] LABS: Glucose, Whole Blood 79 mg/dL (60-115)
[2022-07-29 19:31] VITALS: BP 124/56; PULSE 60; RESP 16; TEMP 36.5; O2SAT 94
[2022-07-29] MEDS: rOPINIRole HCL 0.25 MG TABLET PO (19:53)
[2022-07-30 03:44] VITALS: BP 133/60; PULSE 67; RESP 18; TEMP 36.6; O2SAT 96
[2022-07-30 07:11] LABS: Blood Urea Nitrogen 9 mg/dL (9-16)
[2022-07-30 07:12] LABS: Creatinine Clr Calc Pharmacy 88.7; Estimated Glomerular Filt Rate > 60; Glucose Random 109 mg/dL (60-115); Magnesium 1.5 mg/dL (1.6-2.6)
[2022-07-30 07:24] LABS: Anion Gap 15 (12-20); Calcium 8.3 mg/dL (8.4-10.2); Carbon Dioxide 28 mmol/L (22-29); Chloride 103 mmol/L (96-108); Potassium 3.7 mmol/L (3.3-5.1); Sodium 142 mmol/L (135-145)
[2022-07-30 07:32] LABS: Glucose, Whole Blood 126 mg/dL (60-115)
[2022-07-30] MEDS: 0.9 % Sodium Chloride Flush 3 ML SYRINGE IVFLUSH (07:52)
[2022-07-30] MEDS: Omeprazole 20 MG CAPSULE.DR PO (07:52)
[2022-07-30] MEDS: Apixaban 5 MG TABLET PO (07:52)
[2022-07-30 07:53] VITALS: BP 140/60; PULSE 59; RESP 18; TEMP 36.1; O2SAT 93
[2022-07-30] MEDS: methIMAzole 5 MG TABLET PO (07:54)
[2022-07-30] MEDS: levETIRAcetam 500 MG TABLET 750 MG PO (07:54)
[2022-07-30] MEDS: amLODIPine Besylate 5 MG TABLET PO (07:54)
[2022-07-30] MEDS: Magnesium Oxide 400 MG TABLET PO (08:49)
[2022-07-30] MEDS: Magnesium Sulfate/D5W 1 GM/100 ML PIGGYBACK IV (08:50)
--- NOTE | 2022-07-30 11:17 | MHC.CM.PN ---
PATIENT IS DC TODAY WITH [facility]. [facility] STATES THAT THY CAN NOT OFFER TRANSPORT, SHE DOES NOT QUALIFY' CASE DISCUSSED WITH [facility], WHO IS AWARE OF PATIENT DIAGNOSIS AND WILL TO ARRANGE TRANSPORT HOME. REQUEST FOR ANYTIME AFTER 1400 TODAY RN AND UNIT AWARE OF PLAN
[2022-07-30 12:25] LABS: Magnesium 1.7 mg/dL (1.6-2.6)
--- NOTE | 2022-07-30 13:34 | P.F2F_ITS ---
Service Date Service Date: 07/30/22 Encounter Date of encounter: 07/30/22 Reasons for Services Signs and symptoms assessed: Multiple electrolyte abnormalities, diarrhea with underlying history of congestive heart failure Reason for senior care: medication management and teach disease management Homebound: Leaving the home is medically contraindicated at this time without the asist of a device and/or another person due th the listed conditions above and below. Reason homebound: weakness related to hospital stay Certification: Based on the above findings, I certify that this patient is confined to the home and needs intermittent senior care care, physical therapy and/or speech therapy, or continues to need occupational therapy. The patient is under my care, and I have initiated the establishment of the plan of care. The patient will be followed by a physician who will periodically review the plan of care. Time Spent With Patient Time: Total time managing care of this patient today ____ minutes.
--- NOTE | 2022-07-30 13:36 | PM.DS ---
DS: Providers Provider Date of Service: 07/30/22 Date of admission: 07/28/22 13:16 Primary care physician: Unknown Physician DS: Diagnosis Discharge Diagnosis (1) Diarrhea: Status: Acute (2) Hypocalcemia: Status: Acute (3) Acute hypokalemia: Status: Acute (4) Hypomagnesemia: Status: Acute DS: Summary Hospital Course Hospital Course: Date of Service: 07/28/22 Attending physician on admission: Syed Knight Chief Complaint: Diarrhea 71-year-old female patient with past medical history significant for atrial fibrillation on Eliquis, history of CHF, COPD, diabetes mellitus not on medication, history of epilepsy, osteoarthritis presented to [facility] with 2 weeks of nonbloody brown watery diarrhea with foul odor without associated fever chills or rigors, patient complained of associated nausea and lower abdominal pain around chronic periumbilical hernia she has been tolerating diet, denies recent use of antibiotics, no change in medications, no outside food no other family member with similar symptoms patient has been homebound since 2018, in the emergency room patient was noted to have a low potassium of 2.7 magnesium of 0.6 and low calcium of 7.3 with a normal albumin of 3.5, patient has normal LFTs normal renal function, normal WBC count, CT abdomen and pelvis showed hepato splenomegaly, cholelithiasis And large periumbilical hernia containing unobstructed colon and small bowel and severe atherosclerotic changes with SMA stenosis and 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 Hospital course 71-year-old female patient with multiple medical issues including history of atrial fibrillation on Eliquis, history of hyperlipidemia, epilepsy, hypertension presented to [facility] due to diarrhea of 2 weeks duration without associated fever, with mild nausea and lower abdominal pain patient noted to have multiple electrolyte abnormalities will be admitted for further treatment and evaluation of persistent diarrhea. Diarrhea patient admitted to medical floor had no further episodes of diarrhea, no abdominal pain, tolerating diet,normal WBC, no fever, CT abdomen and pelvis showed no acute diverticulitis, showed periumblical hernia with non obstructive bowels, Stool for C diff and stool panel negative, TSH 0.71, no recent antibiotic use, likely viral gastroenteritis, resolved with supportive care, patient tolerating diet with no recurrence of diarrhea. Multiple electrolyte abnormality hypokalemia, hypo magnesemia and low calcium likely due to GI loss and use of Lasix, potassium and magnesium were aggressively repleted, both levels normalized since patient is on Lasix she is being discharged home on potassium 20 mEq daily and also placed on magnesium 400 mg by mouth daily. Recommend to follow labs in next few days Paroxysmal Atrial fibrillation, in normal sinus rhythm, continue propranolol and Eliquis Unspecified Epilepsy well controlled, continue home medication. History of CHF unspecified since no echo available continue Lasix 40 mg home dose ,reduced dose of losartan since bp stable off losartan, recommend low-salt diet. Morbid obesity due to high calorie recommend low-calorie diet Hyperlipidemia cont.? Statin Hyperthyroidism continue methimazole and propranolol normal TSH. Time Spent with Patient Time attestation: Total time managing care of this patient today ____ minutes. Discharge coordination time: Greater than 30 minutes Quality: Safe Use of Opioids Does Pt have an Active Cancer Diagnosis on the Problem List?: No Quality: Stroke Does the patient have a stroke diagnosis?: No Physical Exam Vital Signs: Vital Signs: Last Vital Signs Temp 97.0 F 07/30/22 07:53 Pulse 59 07/30/22 07:53 Resp 18 07/30/22 07:53 BP 140/60 H 07/30/22 07:53 Pulse Ox 93 07/30/22 07:53 O2 Del Method 07/30/22 07:53 BMI result Body Mass Index 45.6 Const: Other: General awake alert, resting comfortably in no acute distress.? HEENT: PERRLA Neck supple no JVD. CVS? regular rate rhythm, Respiratory lungs diminished breath sound, no respiratory distress, no wheeze, no rhonchi. Gastrointestinal abdomen soft, obese large ch. periumbilical hernia, dry scab, non tender, bowel sounds audible, no guarding , no rigidity. Extremities no edema. Neuro non focal Skin no rash Psych appropriate affect DS: Data Data Completed and Pending Labs on day of discharge: Laboratory Results - last 24 hr 07/29/22 07/30/22 07/30/22 16:30 05:56 07:10 Sodium 142 Potassium 3.7 D Chloride 103 Carbon Dioxide 28 Anion Gap 15 BUN 9 Creatinine 0.64 Estim Creat Clear Calc 88.7 Estimated GFR > 60 POC Glucose 79 126 H Random Glucose 109 Calcium 8.3 L D Magnesium 1.5 L 07/30/22 11:45 Sodium Potassium Chloride Carbon Dioxide Anion Gap BUN Creatinine Estim Creat Clear Calc Estimated GFR POC Glucose Random Glucose Calcium Magnesium 1.7 Discharge Plan Discharge Anticipated Discharge Date/Time: 07/30/22 10:39 Patient Disposition: Home Health Service Discharge Diagnosis: Diarrhea Electrolyte abnormalities Referrals: [facility] [Outside] - 1 Week Esther Mckinley MD [Physician] - 1 Week Discharge Medications: New losartan 25 mg tablet 25 mg PO DAILY Qty: 30 0RF potassium chloride 20 mEq tablet extended release 20 meq PO DAILY Qty: 30 0RF magnesium oxide 400 mg (241.3 mg magnesium) Tablet 400 mg PO DAILY Qty: 30 0RF Continued ropinirole 0.25 mg tablet 0.25 mg PO BEDTIME Qty: 90 1RF methimazole 5 mg tablet 5 mg PO DAILY 90 Days Qty: 90 1RF omeprazole 20 mg capsule,delayed release(DR/EC) 20 mg PO DAILY 90 Days Qty: 90 0RF propranolol 10 mg tablet 1 tab PO BID amlodipine 5 mg tablet 1 tab PO DAILY furosemide 40 mg tablet 1 tab PO DAILY Eliquis 5 mg tablet 5 mg PO BID atorvastatin 40 mg tablet 40 mg PO BEDTIME levetiracetam 750 mg tablet 750 mg PO BID (DME) blood-glucose meter [FreeStyle Cut Off Lite] Kit See Rx Instructions .Route Qty: 1 0RF Rx Instructions: As directed (DME) lancets [FreeStyle Lancets] 28 gauge misc See Rx Instructions .ROUTE .MEDSUPPLY Qty: 100 12RF Rx Instructions: As directed once a day (DME) FreeStyle Lite Strips Strip See Rx Instructions .ROUTE .MEDSUPPLY Qty: 100 12RF Rx Instructions: As directed once a day Discontinued losartan 100 mg tablet 1 tab PO DAILY Discharge Orders: Discharge Order (Routine); Ordered 07/30/22 Ordered By: Syed Knight Diet: Low salt diet Activity on Discharge: As tolerated Stand Alone Forms: Patient Portal Discharge page Other Ambulatory Orders: Basic Metabolic Panel (Routine) Timeframe: 3 Days Facility: [facility] - Location: Laboratory Ordered By: Syed Knight Magnesium (Routine) Timeframe: 3 Days Facility: [facility] - Location: Laboratory Ordered By: Syed Knight Care Plan Goals: Diarrhea resolved Take potassium 20 mEq daily and magnesium 400 mg 1 tablet daily stop Losartan 100 mg, take losartan 25 mg once daily Health Concerns: Continue home medications as above Follow-up labs in 3 days Plan of Treatment: Outpatient follow-up with primary care physician call for appointment Assessment: As above
== END 2022-07-30 14:47 | disposition home health service (06) | DRG 392 ==
LOC: HO.ED 12:26 → HO.EDOVER 13:20 → HO.S3 13:44
PROVIDERS: Admitting Provider Hospitalist; Emergency Provider Emergency Medicine; PCP Internal Medicine; Visit Provider Hospitalist
DX: A08.4 Viral intestinal infection, unspecified (principal); Z68.42 Body mass index [BMI] 45.0-49.9, adult; J44.9 Chronic obstructive pulmonary disease, unspecified; I48.0 Paroxysmal atrial fibrillation; E83.51 Hypocalcemia; E05.90 Thyrotoxicosis, unspecified without thyrotoxic crisis or storm; E87.6 Hypokalemia; E66.01 Morbid (severe) obesity due to excess calories; E83.42 Hypomagnesemia; G40.909 Epilepsy, unspecified, not intractable, without status epilepticus; Z20.822 Contact with and (suspected) exposure to COVID-19; Z79.01 Long term (current) use of anticoagulants; Z79.899 Other long term (current) drug therapy
CPT/HCPCS: 36415; 74176; 80048; 80053; 81001; 82947; 83735; 84100; 84443; 85025; 87086; 87493; 87507; 87635; 89055; 93005; 99285; J3475

== ENCOUNTER 2023-01-18 08:38 | Emergency (ER) | payer MEDICARE, MEDICAID, SELFPAY ==
[2023-01-18 08:50] VITALS: BP 150/90; BP 152/72; PULSE 71; PULSE 86; RESP 18; TEMP 36.8; O2SAT 95; O2SAT 96; BMI 46.2
[2023-01-18 09:43] LABS: Appearance Urine Clear; Color Urine Yellow; Glucose Urine UA Negative (Negative); Leukocyte Esterase Urine Trace (Negative); Nitrite Urine Negative (Negative); PH 6.5 (5.0-9.0); UMIC TRIGGER UACC YES; Urine Blood Negative (Negative); Urine Ketones Negative (Negative); Urine Protein Negative (Neg-Trace)
[2023-01-18 09:49] LABS: Bacteria Urine None Seen (None Seen); Hyaline Casts Urine 0-2 /LPF (0-2); RBC Urine 0-2 /HPF (0-2); Squamous Epithelial Cell Urine 0-2 /HPF (0-2); WBC Urine 0-5 /HPF (0-5)
[2023-01-18 10:00] VITALS: BP 155/85; PULSE 57; RESP 14; TEMP 36.6; O2SAT 93
--- NOTE | 2023-01-18 12:52 | ED_ITS ---
HPI - Abdominal Pain General Chief Complaint: Abdominal Pain Stated Complaint: Hernia pain. Gets bigger when coughing Time Seen by Provider: 01/18/23 09:02 Source: patient and EMS Mode of arrival: EMS Limitations: no limitations History of Present Illness HPI narrative: 72-year-old female presents with abdominal pain secondary to umbilical hernia. Patient has a longstanding history of her umbilical hernia. She reportedly followed up with a couple of surgeons who did not want perform surgery. The pain in her abdomen has become moderate to severe. It does not radiate. There is no clear relieving or exacerbating features. There is no nausea vomiting. She denies any diarrhea constipation. She is having normal bowel movements and passing flatus without difficulty. Patient denies any fevers or chills. She denies any blood in her stool. Pain that she is experiencing is achy and sharp in nature. Related Data Home Medications Medication Instructions Recorded Confirmed apixaban 5 mg tablet (Eliquis) 5 mg PO BID 09/02/21 07/28/22 atorvastatin 40 mg tablet 40 mg PO BEDTIME 09/07/21 07/28/22 levetiracetam 750 mg tablet 750 mg PO BID 09/30/21 07/28/22 amlodipine 5 mg tablet 1 tab PO DAILY 07/28/22 07/28/22 furosemide 40 mg tablet 1 tab PO DAILY 07/28/22 07/28/22 propranolol 10 mg tablet 1 tab PO BID 07/28/22 07/28/22 Previous Rx's Medication Instructions Recorded ropinirole 0.25 mg tablet 0.25 mg PO BEDTIME #90 tabs 09/21/21 blood sugar diagnostic (FreeStyle #100 ea 09/30/21 Lite Strips) blood-glucose meter (FreeStyle #1 ea 09/30/21 [place] Lite kit) lancets 28 gauge (FreeStyle #100 ea 09/30/21 Lancets) methimazole 5 mg tablet 5 mg PO DAILY 90 days #90 tabs 04/20/22 losartan 25 mg tablet 25 mg PO DAILY #30 tabs 07/30/22 magnesium oxide 400 mg (241.3 mg 400 mg PO DAILY #30 tabs 07/30/22 magnesium) tablet potassium chloride 20 mEq 20 meq PO DAILY #30 tabs 07/30/22 tablet,extended release omeprazole 20 mg capsule,delayed 20 mg PO DAILY 90 days #90 caps 11/04/22 release Allergies Allergy/AdvReac Type Severity Reaction Status Date / Time aloe vera [ALOE VERA] Allergy Intermediate RASH Verified 09/30/21 15:55 erythromycin base Allergy Intermediate RASH Verified 09/30/21 15:55 [ERYTHROMYCIN BASE] azithromycin Allergy Unknown Rash Verified 09/30/21 15:55 simvastatin AdvReac Unknown palpitations, Verified 09/30/21 15:55 chest pains Review of Systems Review of Systems CONSTITUTIONAL: Denies weight loss, fever and chills. HEENT: Denies changes in vision and hearing. RESPIRATORY: Denies SOB and cough. CV: Denies palpitations no CP. GI: + abdominal pain, - nausea, vomiting and diarrhea. : Denies dysuria and urinary frequency. MSK: Denies myalgia and joint pain. SKIN: Denies rash and pruritus. NEUROLOGICAL: Denies headache and syncope. PSYCHIATRIC: Denies recent changes in mood. Denies anxiety and depression. All other ROS are negative unless in HPI PMFSH Past Medical History Medical History Congestive heart failure (CHF) COPD (chronic obstructive pulmonary disease) Diabetes mellitus Epilepsy Osteoarthritis Surgical History History of hysterectomy Social History Social History Household Members: Spouse Housing: House Do you presently have visiting nurse or other home services: Yes (home health aide [facility]) Alcohol intake: never Patient Tobacco Use Status: Never used Tobacco Tobacco use type: Cigarette e-Cigarette/Vaping Use: Never Used Advance Directives: Yes Advance Directives Information Provided: Yes Advance Directives on File: No Current occupational status: disabled Cognitive needs: No Hearing needs: No Vision needs: No Physical Exam ED Vital Signs: Vital Signs - 24 hr 01/18/23 08:50 01/18/23 10:00 Temperature 98.3 F 97.8 F Pulse Rate 71 57 Respiratory Rate 18 14 Blood Pressure 152/72 H 155/85 H Pulse Oximetry 95 93 Oxygen Delivery Method Room Air Room Air BMI result Body Mass Index 46.2 GEN: Well developed, no acute distress, alert, oriented HEENT: Normocephalic, atraumatic, normal external ears, nose appears normal, no oropharyngeal edema or exudates Eyes: Normal to appearance Neck: Supple, no lymphadenopathy Respiratory: Talks in complete sentences, no respiratory distress, clear to auscultation bilaterally Cardiovascular: Regular rate and rhythm, no murmurs rubs or gallops Abdomen: Soft, umbilical hernia tenderness, nondistended, no guarding, no rebound Back: No CVA tenderness Extremities: No clubbing cyanosis or edema Neurologic: No focal neurologic deficits, cranial nerves 2-12 intact, strength is 5/5 bilaterally Skin: No rash Course Course Course Narrative: Patient is nonobstructing. There is no indication for imaging at this time. I will refer the patient to General surgery and provider with an abdominal binder. Patient was given signs and symptoms of obstruction. All questions were addressed and answered Medical Decision Making Medical Decision Making [facility] Narrative: 72-year-old female presents with hernia pain. Patient has a history of a large umbilical hernia. This was seen on CT scan in July of this year. She has no nausea, vomiting is able to pass stool and flatus normally. Her examination did reveal the large hernia. Was mildly tender to palpation. Her belly was otherwise soft, nondistended, nontender. Patient has no obstruction symptoms. I did recommend obtaining an x-ray to make sure it and confirmed this. There is no indication for emergent CT scan at this time. Patient refuse x-ray. I will refer the patient to General surgery. I will provide the patient with an abdominal binder Differential Diagnosis Differential Diagnoses: The differential diagnosis associated with the presentation includes (Hernia, diverticulitis, IBD, IBS, colitis) Lab Data [facility] Lab Attestation statement: I reviewed the patient's lab results. Labs: Lab Results 01/18/23 Range/Units 09:34 Urine Color Yellow Urine Appearance Clear Urine pH 6.5 (5.0-9.0) Ur Specific [place] 1.010 (1.005-1.025) Urine Protein Negative (Neg-Trace) mg/dL Urine Glucose (UA) Negative (Negative) mg/dL Urine Ketones Negative (Negative) mg/dL Urine Blood Negative (Negative) Urine Nitrite Negative (Negative) Ur Leukocyte Esterase Trace H (Negative) Urine RBC 0-2 (0-2) /HPF Urine WBC 0-5 (0-5) /HPF Ur Squamous Epith Cells 0-2 (0-2) /HPF Urine Bacteria None Seen (None Seen) Hyaline Casts 0-2 (0-2) /LPF External Record Review External record reviewed: Prior outpatient radiology Tests considered The following testing was considered but not selected: X-ray, laboratory analysis Prescription Management I considered prescription management with: Pain Medication Chronic Conditions Patient?s care impacted by: Hypertension Discharge Plan Discharge Clinical Impression: Hernia, umbilical Patient Disposition: Home, Self-Care Instructions: Umbilical Hernia (ED), Abdominal Binder (ED) Prescriptions: No Action ropinirole 0.25 mg tablet 0.25 mg PO BEDTIME Qty: 90 1RF methimazole 5 mg tablet 5 mg PO DAILY 90 Days Qty: 90 1RF omeprazole 20 mg capsule,delayed release(DR/EC) 20 mg PO DAILY 90 Days Qty: 90 0RF propranolol 10 mg tablet 1 tab PO BID amlodipine 5 mg tablet 1 tab PO DAILY furosemide 40 mg tablet 1 tab PO DAILY losartan 25 mg tablet 25 mg PO DAILY Qty: 30 0RF potassium chloride 20 mEq tablet extended release 20 meq PO DAILY Qty: 30 0RF magnesium oxide 400 mg (241.3 mg magnesium) Tablet 400 mg PO DAILY Qty: 30 0RF Eliquis 5 mg tablet 5 mg PO BID atorvastatin 40 mg tablet 40 mg PO BEDTIME levetiracetam 750 mg tablet 750 mg PO BID (DME) blood-glucose meter [FreeStyle [place] Lite] Kit See Rx Instructions .Route Qty: 1 0RF Rx Instructions: As directed (DME) lancets [FreeStyle Lancets] 28 gauge misc See Rx Instructions .ROUTE .MEDSUPPLY Qty: 100 12RF Rx Instructions: As directed once a day (DME) FreeStyle Lite Strips Strip See Rx Instructions .ROUTE .MEDSUPPLY Qty: 100 12RF Rx Instructions: As directed once a day Referrals: Dawit Cat MD [Physician] - 1 week Interventions: ED Discharge Assessment Last Done: 01/18/23 11:08 Discharge Date/Time: 01/18/23 11:10
== END 2023-01-18 11:10 | disposition home or self-care (01) ==
PROVIDERS: Emergency Provider Emergency Medicine; PCP Internal Medicine
DX: K42.9 Umbilical hernia without obstruction or gangrene (principal); Z79.899 Other long term (current) drug therapy
CPT/HCPCS: 81001; 99283